=== PATIENT | female | born 1985 | race Caucasian/White ===

== ENCOUNTER → 2020-09-01 | Outpatient (CLI) | payer OTHER ==
[2020-09-01 14:35] LABS: HEMOGLOBIN 12.5 gm/dl (12.3-15.3); RED BLOOD COUNT 4.39 M/UL (4.00-5.10); WHITE BLOOD COUNT 8.6 K/UL (4.5-11.0)
[2020-09-01 14:56] LABS: BUN/CREATININE RATIO 14 (0-10)
[2020-09-02 08:14] LABS: HBSAG SCREEN Negative (Negative); HEP A AB, IGM Negative (Negative); HEP B CORE AB, IGM Negative (Negative); HEP B CORE AB, TOT Negative (Negative)
[2020-09-02 20:11] LABS: HEPATITIS C QUANTITATION HCV Not Detected IU/mL (.)
[2020-09-03 21:11] LABS: ALT (SGPT) P5P 27 IU/L (0-40); APOLIPOPROTEIN A-1 117 mg/dL (116-209); BILIRUBIN, TOTAL 0.2 mg/dL (0.0-1.2); FIBROSIS SCORE 0.03 (0.00-0.21); GGT 19 IU/L (0-60); HAPTOGLOBIN 198 mg/dL (33-278); NECROINFLAMMAT ACTIVITY GRADE A0-No activity (.); NECROINFLAMMAT ACTIVITY SCORE 0.09 (0.00-0.17)
== END ==
LOC: LAB 13:30
PROVIDERS: Family Medicine
DX: B18.2 Chronic viral hepatitis C (principal)
CPT/HCPCS: 36415; 80053; 81596; 82172; 82247; 82977; 83010; 84443; 84460; 85025; 86704; 86705; 86706; 86708; 86709; 87340; 87522